=== PATIENT | male | born 1965 | race Caucasian/White ===

== ENCOUNTER → 2017-09-23 09:57 | Outpatient (CLI) | payer BC, SELFPAY ==
--- NOTE | 2017-09-23 09:59 | ECHOD_ITS ---
Reason For Study: CP Procedure This was a 2D Doppler, Color Flow transthoracic echocardiogram. Exam performed in department. Left Ventricle Normal size and thickness. The estimated ejection fraction is 65 %. Normal diastology for age. No regional wall motion abnormalities noted. Right Ventricle Normal size and thickness. Normal systolic function. Atria Normal left atrium. Normal right atrium. Normal atrial septum. Mitral Valve The mitral valve is structurally normal. No prolapse or stenosis seen. Trivial mitral valve insufficiency. Tricuspid Valve Normal tricuspid valve. Trivial tricuspid valve insufficiency. Right ventricular systolic pressure estimated to be 25 mmHg. Aortic Valve Normal aortic valve. Trisinus/trileaflet aortic valve. Pulmonic Valve Normal pulmonic valve. Great Vessels Normal aortic root. Normal arch. Normal inferior vena cava. Inferior vena cava collapse with sniff. Pericardium/Pleural No pericardial effusion. MMode/2D Measurements & Calculations LVIDd: 4.8 cm IVSd: 1.1 cm Ao root diam: 3.7 cm LVIDs: 3.5 cm LVPWd: 1.2 cm RVDd: 2.8 cm FS: 27.0 % LAV(MOD-bp): 46.7 ml EDV(MOD-sp4): 122.2 ml SV(MOD-sp4): 70.1 ml LAV(MOD-bp) Indexed: 19.4 ml/m2 ESV(MOD-sp4): 52.1 ml LAV(MOD-sp2): 55.1 ml EF(MOD-sp4): 57.3 % LAV(MOD-sp4): 38.9 ml LA A4 area: 16.3 cm2 RA A4 area: 12.3 cm2 Time Measurements MV dec time: 0.26 sec Doppler Measurements & Calculations MV E max richard: 82.7 cm/sec Lat Peak E' Richard: 14.2 cm/sec Med Peak E' Richard: 13.8 cm/sec MV A max richard: 61.5 cm/sec E/E' lat: 5.8 E/E' med: 6.0 MV E/A: 1.3 Ao V2 max: 138.4 cm/sec LV V1 max: 102.0 cm/sec PA V2 max: 137.2 cm/sec Ao max P.7 mmHg LV V1 max P.2 mmHg TR max richard: 208.1 cm/sec TR max P.4 mmHg Interpretation Summary The estimated ejection fraction is 65 %. Normal diastology for age. Trivial mitral valve insufficiency. Trivial tricuspid valve insufficiency. Right ventricular systolic pressure estimated to be 25 mmHg. There is no comparison study available. Ordering Physician: Adriel Barrett Referring Physician: KACI SIFUENTES Performed By: Teresita Yin RDCS
== END ==
PROVIDERS: Family Provider Family Medicine; PCP Family Medicine; Visit Provider Internal Medicine Cardiovascular Disease
DX: R07.9 Chest pain, unspecified (principal)
CPT/HCPCS: 93306

== ENCOUNTER → 2017-09-25 13:32 | Outpatient (CLI) | payer BC, SELFPAY ==
--- NOTE | 2017-09-25 13:34 | STE_ITS ---
Reason For Study: Chest pain Stress Results Protocol: Stress Echocardiogram Maximum Predicted HR: 170 bpm Target HR: 145 bpm% Maximum Pr edicted HR: 105 % DurationHeart Rate Stage (mm:ss) (bpm) BP Baseline 67 148/94 Stage 1 3:00 12 3 140/98 Stage 2 3:00 13 9 160/100 Stage 3 3:00 16 9 166/96 Stage 4 1:00 17 9 / Recovery 97 126/84 Stress Duration: 10:00 mm:ss Maximum Stress HR: 179 bpm Baseline Echocardiogram Findings The estimated ejection fraction is 65 %. Stress Echo Wall motion Data Resting WMIntermediate WMStress WM Resting Wall Motion Wall Motion Stress No regional wall motion No regional wall motion abnormalities noted. abnormalities noted. EKG Data The baseline ECG demonstrates normal sinus rhythm with at rate of _ beats per minute. The patient exercised according to the regular [facility] protocol for a total duration of 10:01. The maximum heart rate attained was 181 beats per minute. This was 106% of maximum predicted heart rate. The patient exercised into stage 4 of the [facility] protocol. During stress, there were no ST or T wave changes noted to suggest ischemia. No clinical angina was noted. No arrhythmias noted. Interpretation Summary The estimated ejection fraction is 65 %. Normal, adequate, treadmill echocardiogram. Negative for ischemia by EKG and echocardiographic criteria. No anginal symptoms noted. No arrhythmias noted. Appropriate blood pressure response to exercise. Average exercise capacity for age. Final LVEF is 75%. Patient tolerated procedure well. No complications. Ordering Physician: Adriel Barrett Referring Physician: Cecilio Hackett Performed By: Jenniffer Garza RDCS
== END ==
PROVIDERS: Family Provider Family Medicine; PCP Family Medicine; Visit Provider Internal Medicine Cardiovascular Disease
DX: R07.9 Chest pain, unspecified (principal)
CPT/HCPCS: 93017; 93350

== ENCOUNTER → 2021-12-13 | Outpatient (CLI) | payer BC, SELFPAY ==
[2021-12-13 10:36] LABS: Anion Gap 3 (5-15); BUN 14 mg/dL (7-18); BUN/Creat Ratio 12.8 RATIO (10-20); Calcium,Total 8.7 mg/dL (8.5-10.1); Chloride 102 mmol/L (98-107); Cholesterol 168 mg/dL (200); Creatinine, Serum 1.09 mg/dL (0.70-1.30); EST Glomerular Filtration Rate 75 mL/min (>60); Est Glom Filt Rate - Afr Amer 90 mL/min (>60); Glucose 97 mg/dL (74-106); High Density Lipoprotein 37 mg/dL; Potassium 4.3 mmol/L (3.5-5.1); Sodium Level 135 mmol/L (136-145); Triglycerides 94 mg/dL; Very Low Density Lipoprotein 19 mg/dL (5-40)
[2021-12-13 11:23] LABS: Hemoglobin A1c 5.5 % (3.8-5.6)
== END | disposition home or self-care (01) ==
PROVIDERS: PCP Family Medicine; Referring Provider Family Medicine; Visit Provider Family Medicine
DX: I70.8 Atherosclerosis of other arteries (principal); H35.00 Unspecified background retinopathy; H35.60 Retinal hemorrhage, unspecified eye
CPT/HCPCS: 36415; 80048; 80061; 83036

== ENCOUNTER → 2024-01-08 | Outpatient (CLI) | payer BC, SELFPAY ==
--- NOTE | 2024-01-08 09:15 | RAD_ITS ---
STUDY: X-RAY - LEFT KNEE REASON FOR EXAM: Male, 58 years old. LEFT KNEE PAIN AND SWELLING/ ASSESS FOR ARTHR VS FRACTURE TECHNIQUE: 4 view(s) of the knee. COMPARISON: None. FINDINGS: Normal visualized distal femur. Normal visualized proximal tibia and fibula. Normal proximal tibiofibular articulation. There is no demonstrated fracture. Normal medial femorotibial compartment. Normal lateral femorotibial compartment. Normal patellofemoral articulation. There is no demonstrated joint effusion. The soft tissue structures are unremarkable. RAD/Knee 4 or More Views IMPRESSION: Normal x-ray examination of the knee. Electronically Signed: Erick Mckenna MD at 19:16 EDT ,
[2024-01-08 09:45] LABS: Absolute Lymphocyte Count 2.43 X10^3/uL (0.83-4.51); Absolute Neutrophil Count 6.9 X10^3/uL (2.0-7.7); Basophil# 0.07 X10^3/uL; Basophil% 0.7 % (0-1); Eosinophil# 0.17 X10^3/uL; Eosinophils% 1.7 % (0-5); Hematocrit 45.9 % (40-54); Hemoglobin 14.9 g/dL (13.0-16.5); Lymphocyte # 2.43 X10^3/ul (0.83-4.51); Lymphocyte % 23.9 % (19-41); Mean Corp Hgb Conc 32.5 g/dL (32-36); Mean Corpuscular Hgb 26.5 pg (27.0-32.0); Mean Corpuscular Volume 81.5 fL (80-94); Mean Platelet Vol. 9.5 fl (6.2-12.0); Monocyte% 5.9 % (0-10); NRBC Flagged by Analyzer 0 % (0-5); Neutrophil # 6.85 X10^3/uL (2.7-7.7); Neutrophil % 67.2 % (47-70); Platelet Count 247 K/mm3 (150-450); RBC Distribution Width CV 13.1 % (11.6-14.6); RBC Distribution Width SD 38.1 fl (35.1-43.9); Red Blood Count 5.63 M/mm3 (4.6-6.2); White Blood Count 10.2 K/mm3 (4.4-11.0)
[2024-01-08 10:14] LABS: ALB/GLOB Ratio 0.8 RATIO (0.9-2.4); AST(SGOT) 13 U/L (15-37); Alanine Aminotransfer ALT/SGPT 21 U/L (16-61); Albumin, Serum 3.4 g/dL (3.2-5.0); Alkaline Phosphatase 81 U/L (45-117); Anion Gap 6 (5-15); BUN 21 mg/dL (7-18); BUN/Creat Ratio 17.6 RATIO (10-20); Chloride 105 mmol/L (98-107); Cholesterol 197 mg/dL (200); Creatinine, Serum 1.19 mg/dL (0.70-1.30); EST Glomerular Filtration Rate 67 mL/min (>60); Est Glom Filt Rate - Afr Amer 81 mL/min (>60); Glucose 108 mg/dL (74-106); High Density Lipoprotein 53 mg/dL; PSA,Total - Annual Screen 2.15 ng/mL (0.00-4.00); Potassium 4.1 mmol/L (3.5-5.1); Protein, Total 7.4 g/dL (6.4-8.2); Sodium Level 137 mmol/L (136-145); Triglycerides 93 mg/dL; Very Low Density Lipoprotein 19 mg/dL (5-40)
== END | disposition home or self-care (01) ==
LOC: LAB 09:04
PROVIDERS: PCP Nurse Practitioner Family; Referring Provider Nurse Practitioner Family; Visit Provider Nurse Practitioner Family
DX: Z00.01 Encounter for general adult medical examination with abnormal findings (principal); Z12.5 Encounter for screening for malignant neoplasm of prostate; M25.562 Pain in left knee
CPT/HCPCS: 36415; 73564; 80053; 80061; 84153; 85025; G0103